=== PATIENT | male | born 1990 | race Caucasian/White ===

== ENCOUNTER 2025-04-26 09:17 | Emergency (ER) | payer BC ==
[2025-04-26] MEDS: Ketorolac 30 MG/ML SDV IM ONE (09:51)
[2025-04-26] MEDS: Acetaminophen/oxyCODONE 325-5 MG Tab PO ONE (09:55)
== END 2025-04-26 12:07 | disposition home or self-care (01) ==
LOC: LL.ED 09:17
DX: S32.2XXA Fracture of coccyx, initial encounter for closed fracture (principal); S22.080A Wedge compression fracture of T11-T12 vertebra, initial encounter for closed fracture; S32.010A Wedge compression fracture of first lumbar vertebra, initial encounter for closed fracture; S32.020A Wedge compression fracture of second lumbar vertebra, initial encounter for closed fracture; Z79.899 Other long term (current) drug therapy; Z79.890 Hormone replacement therapy; E66.9 Obesity, unspecified; W01.0XXA Fall on same level from slipping, tripping and stumbling without subsequent striking against object, initial encounter
CPT/HCPCS: 72131; 96372; 99283; 99284; A9270-GY; J1885